=== PATIENT | male | born 1950 | race Caucasian/White ===

== ENCOUNTER → 2016-07-02 | Outpatient (CLI) | payer BC ==
[~2016-07-02] MED LIST: LEVO200T PO
[2016-07-02 12:02] LABS: ALT/SGPT 46 U/L (12-78); BLOOD UREA NITROGEN 17 mg/dl (7-18); BUN/CREATININE RATIO 13.8 (10-20); CALCIUM 9.5 mg/dl (8.5-10.1); CARBON DIOXIDE 27 mmol/L (21-32); CHLORIDE 106 mmol/L (98-107); GLUCOSE 92 mg/dl (70-99); POTASSIUM 4.9 mmol/L (3.5-5.1); SODIUM 139 mmol/L (136-145)
[2016-07-02 12:05] LABS: BASO % 1.2 %; BASO ABS # 0.06 K/uL (0-0.2); COMPLETE YES; EOS % 3.7 %; HEMATOCRIT 45.4 % (42-52); IG% 0.2 %; LYMPH % 37.5 %; LYMPH ABS # 1.94 K/uL (1.2-3.4); MEAN CORPUSCULAR HEMOGLOBIN 31.9 pg (25-34); MEAN CORPUSCULAR HGB CONC 33.9 g/dl (32-36); MEAN PLATELET VOLUME 10.1 fL (7.4-10.4); MONO % 9.1 %; NEUT % 48.3 %; PLATELET COUNT 230 K/uL (130-400); RED BLOOD COUNT 4.83 M/uL (4.7-6.1); WHITE BLOOD COUNT 5.17 K/uL (4.8-10.8)
[2016-07-02 12:13] LABS: ALB/GLOB RATIO 1.1 (0.9-2); ALKALINE PHOSPHATASE 41 U/L (45-117); AST/SGOT 26 U/L (15-37); CHOLESTEROL 190 mg/dl (0-200); CHOLESTEROL/HDL RATIO 3.3; HDL CHOLESTEROL 58 mg/dl; LDL CHOLESTEROL CALCULATED 119 mg/dl; TRIGLYCERIDES 64 mg/dl (0-150); VERY LOW DENSITY LIPOPROT CALC 13 mg/dl
== END | disposition home or self-care (01) ==
LOC: C.LAB 10:14
PROVIDERS: ATTEND Internal Medicine
DX: Z00.00 Encounter for general adult medical examination without abnormal findings (principal); Z87.09 Personal history of other diseases of the respiratory system; Z11.59 Encounter for screening for other viral diseases

== ENCOUNTER → 2016-10-04 | Outpatient (CLI) | payer BC | END | disposition home or self-care (01) | LOC: C.LAB 09:55 | PROVIDERS: ATTEND Urology | DX: C61 Malignant neoplasm of prostate (principal) ==

== ENCOUNTER → 2017-05-08 | Outpatient (CLI) | payer BC ==
--- NOTE | 2017-05-08 11:20 | DIAGNOSTIC IMAGING REPORT ---
KUB CLINICAL HISTORY: NEPHROLITHIASIS COMPARISON STUDY: 04/04/2016 FINDINGS: There are multiple tiny bilateral renal calculi measuring up to 2 mm in diameter. Calcifications are also visualized projected over the superior aspect of the left renal shadow. It is possible that these are adrenal. Renal cortical calcifications could potentially appear similar. Degenerative changes are present within the spine. There is no pathologic bowel dilatation. There are multiple pelvic basin calcifications, likely representing phleboliths. IMPRESSION: Bilateral nephrolithiasis, similar to the preceding March 2016 study Electronically signed by: Ed Judge M.D. 05/08/2017 11:19 AM Dictated Date/Time: 05/08/2017 11:17 AM
== END | disposition home or self-care (01) ==
LOC: C.RAD 09:23
PROVIDERS: ATTEND Urology
DX: C61 Malignant neoplasm of prostate (principal); N20.0 Calculus of kidney

== ENCOUNTER 2017-06-27 11:00 | Emergency (ER) | payer OTHER ==
[~2017-06-27] VITALS: Ht 182.9 cm; Wt 122.8 kg
[2017-06-27 11:02] VITALS: TEMP 36.7; Ht 182.9 cm; Wt 122.8 kg
--- NOTE | 2017-06-27 11:30 | EMERGENCY ROOM VISIT NOTE ---
History Report prepared by Ilan: Svetlana Julio Under the Supervision of: Dr. Yusef Parker D.O. First contact with patient: 11:18 Chief Complaint: KIDNEY STONE Stated Complaint: KIDNEY STONE PAIN IN LEFT KIDNEY History of Present Illness The patient is a 67 year old male who presents to the Emergency Room with complaints of constant left flank pain beginning this morning. The patient has a history of kidney stones. He states his pain feels similar to when he had had kidney stones. He reports nausea and sweats this morning but denies any vomiting or testicular pain. Presently, the patient is feeling better and denies any nausea. The patient follows up with Dr. Coombs-Urology who performs yearly X-rays on his kidney stones. The patient had an X-ray on his kidneys in April which showed two 2 mm stones in his left kidney. The patient called Dr. Coombs's office this morning and was told to come to the ED. The patient has a history of prostate cancer. Source of History: patient Onset: this morning Position: other (left flank) Timing: constant Associated Symptoms: + diaphoresis, + nausea, No vomiting Review of Systems See HPI for pertinent positives & negatives. A total of 10 systems reviewed and were otherwise negative. Family History Patient reports no known family medical history. Social History Smoking Status: Never Smoker Marital Status: Housing Status: lives with significant other Current/Historical Medications Scheduled Ascorbic Acid (Vitamin C), 1,000 MG PO DAILY Levothyroxine Sodium (Synthroid), 200 MCG PO QAM Magnesium Oxide (Mag-Ox), 400 MG PO DAILY Scheduled PRN Hydrocodone/Acetaminophen 5MG/325MG (Eitzen 5MG/325MG), 1 TABLET PO Q4 PRN for Pain Allergies Coded Allergies: Codeine (Unverified Adverse Reaction, Mild, GI SYMPTOMS, 06/27/17) Nausea/Vomiting Physical Exam Vital Signs Date Time Temp Pulse Resp B/P (MAP) Pulse Ox O2 Delivery O2 Flow Rate FiO2 06/27/17 13:33 69 18 131/69 97 06/27/17 12:55 75 06/27/17 12:43 75 16 129/74 96 Room Air 06/27/17 11:02 36.7 91 18 143/96 96 Room Air Physical Exam GENERAL: Patient is awake, alert, and in no acute distress. Patient is resting comfortably and showing no signs of anxiety EYES: The conjunctivae are clear. The pupils are round and reactive. EARS, NOSE, MOUTH AND THROAT: The nose is without any evidence of any deformity. Mucous membranes are moist tongue is midline NECK: The neck is nontender and supple. RESPIRATORY: Normal respiratory effort is noted there is no evidence of wheezing rhonchi or rales CARDIOVASCULAR: Regular rate and rhythm noted there no murmurs rubs or gallops normal S1 normal S2 GASTROINTESTINAL: The abdomen is soft. Bowel sounds are present in all quadrants. Abdomen is nontender BACK: No midline tenderness or or step-off noted range of motion in flexion extension as well as rotation no signs of muscle spasm noted MUSCULOSKELETAL/EXTREMITIES: There is no evidence of gross deformity full range of motion is noted in the hips and shoulders SKIN: There is no obvious evidence of any rash. There are no petechiae, pallor or cyanosis noted. NEUROLOGIC: Patient is awake alert and oriented x3 Medical Decision & Procedures ER Provider Diagnostic Interpretation: Radiology results as stated below per my review and radiologist interpretation: KUB FINDINGS: Mottled lucencies throughout the abdomen likely stool and bowel gas. No gross pneumoperitoneum. No bowel obstruction. Bowel gas and stool limit evaluation for renal calculi. Allowing for this, bilateral renal calculi are noted. However, some of the previously noted calculi are no longer visualized, which may be related to obscuration by stool. Numerous pelvic phleboliths. Degenerative changes of the spine. Lung bases clear. IMPRESSION: 1. Bilateral nephrolithiasis. Evaluation limited by bowel gas and stool. Electronically signed by: Mikael Costa M.D. (RENAL)RETROPERITON COMP FINDINGS: Right kidney: Normal echogenicity of renal parenchyma. Right kidney measures 11.0 cm. No hydronephrosis. Hyperechogenic foci measuring up to 8 mm with posterior shadowing and twinkling artifact, consistent with renal calculi. Normal perfusion. Left kidney: Normal echogenicity of renal parenchyma. Left kidney measures 12.5 cm. No hydronephrosis. Hyperechogenic foci not as well detected secondary to poor sonographic window. Renal calculi suspected. Normal perfusion. Bladder: No bladder wall thickening. Bilateral ureteral jets not visualized. Other: None. IMPRESSION: 1. Nonobstructive right nephrolithiasis. Limited sonographic window on the left but suspected left renal calculi. 2. No hydronephrosis. Electronically signed by: Mikael Costa M.D. Laboratory Results 06/27/17 11:15 Red Blood Count 4.89, Mean Corpuscular Volume 95.7, Mean Corpuscular Hemoglobin 32.1, Mean Corpuscular Hemoglobin Concent 33.5, Mean Platelet Volume 10.2, Neutrophils (%) (Auto) 84.1, Lymphocytes (%) (Auto) 8.7, Monocytes (%) (Auto) 5.9, Eosinophils (%) (Auto) 0.5, Basophils (%) (Auto) 0.5, Neutrophils # (Auto) 8.98, Lymphocytes # (Auto) 0.93, Monocytes # (Auto) 0.63, Eosinophils # (Auto) 0.05, Basophils # (Auto) 0.05 06/27/17 11:15 Test 06/27/17 11:15 06/27/17 11:32 White Blood Count 10.67 K/uL (4.8-10.8) Red Blood Count 4.89 M/uL (4.7-6.1) Hemoglobin 15.7 g/dL (14.0-18.0) Hematocrit 46.8 % (42-52) Mean Corpuscular Volume 95.7 fL (80-100) Mean Corpuscular Hemoglobin 32.1 pg (25-34) Mean Corpuscular Hemoglobin Concent 33.5 g/dl (32-36) Platelet Count 220 K/uL (130-400) Mean Platelet Volume 10.2 fL (7.4-10.4) Neutrophils (%) (Auto) 84.1 % Lymphocytes (%) (Auto) 8.7 % Monocytes (%) (Auto) 5.9 % Eosinophils (%) (Auto) 0.5 % Basophils (%) (Auto) 0.5 % Neutrophils # (Auto) 8.98 K/uL (1.4-6.5) Lymphocytes # (Auto) 0.93 K/uL (1.2-3.4) Monocytes # (Auto) 0.63 K/uL (0.11-0.59) Eosinophils # (Auto) 0.05 K/uL (0-0.5) Basophils # (Auto) 0.05 K/uL (0-0.2) RDW Standard Deviation 47.2 fL (36.4-46.3) RDW Coefficient of Variation 13.5 % (11.5-14.5) Immature Granulocyte % (Auto) 0.3 % Immature Granulocyte # (Auto) 0.03 K/uL (0.00-0.02) Anion Gap 7.0 mmol/L (3-11) Est Creatinine Clear Calc Drug Dose 75.1 ml/min Estimated GFR () 65.3 Estimated GFR (Non- 56.3 BUN/Creatinine Ratio 15.5 (10-20) Calcium Level 9.8 mg/dl (8.5-10.1) Total Bilirubin 0.7 mg/dl (0.2-1) Direct Bilirubin 0.2 mg/dl (0-0.2) Aspartate Amino Transf (AST/SGOT) 34 U/L (15-37) Alanine Aminotransferase (ALT/SGPT) 56 U/L (12-78) Alkaline Phosphatase 39 U/L (45-117) Total Protein 8.0 gm/dl (6.4-8.2) Albumin 4.3 gm/dl (3.4-5.0) Lipase 192 U/L (73-393) Urine Color YELLOW Urine Appearance CLEAR (CLEAR) Urine pH 7.0 (4.5-7.5) Urine Specific [place] 1.012 (1.000-1.030) Urine Protein NEG (NEG) Urine Glucose (UA) NEG (NEG) Urine Ketones NEG (NEG) Urine Occult Blood 2+ (NEG) Urine Nitrite NEG (NEG) Urine Bilirubin NEG (NEG) Urine Urobilinogen NEG (NEG) Urine Leukocyte Esterase NEG (NEG) Urine WBC (Auto) 1-5 /hpf (0-5) Urine RBC (Auto) >30 /hpf (0-4) Urine Hyaline Casts (Auto) 1-5 /lpf (0-5) Urine Epithelial Cells (Auto) 10-20 /lpf (0-5) Urine Bacteria (Auto) NEG (NEG) Laboratory results per my review. ED Course 1119: The patient was evaluated in room A2. A complete history and physical examination were performed. 1305: I updated the patient on his test results. 1321: Upon reevaluation, the patient is resting comfortably. I discussed the results and treatment plan with him. He verbalized agreement of the treatment plan. The patient was discharged home. Medical Decision Differential diagnosis: Etiologies such as renal colic, appendicitis, diverticulitis, mesenteric ischemia, aortic pathology, infections, inflammatory bowel disease, PUD, biliary pathology, UTI, as well as others were entertained. Nursing notes reviewed. The patient's previous radiographic studies were reviewed. The patient is a 67-year-old male who began having acute flank pain early this morning. Given the patient's history and physical exam as well as his findings on laboratory studies I feel he likely passed a kidney stone today. His pain was severe but by the time he came to the emergency Department pain was almost resolved. The patient did not wish to take any medication for pain. The patient' s ultrasound did not show any definite hydronephrosis. I discussed the patient' s laboratory radiographic studies with him. At this time I've recommended he continue drinking plenty clear liquids and continue using Motrin and Tylenol for pain. He was also encouraged to take the stronger pain medication as needed for return pain and follow-up with his primary urologist as soon as possible. He was also encouraged return to the emergency department immediately if symptoms change worsen or the need arises. Medication Reconcilliation Current Medication List: was personally reviewed by me Blood Pressure Screening Patient's blood pressure: Elevated blood pressure Blood pressure disposition: Elevated BP felt to be situational Impression Primary Impression: Renal colic Additional Impression: Hematuria Scribe Attestation The scribe's documentation has been prepared under my direction and personally reviewed by me in its entirety. I confirm that the note above accurately reflects all work, treatment, procedures, and medical decision making performed by me. Departure Information Dispostion Home / Self-Care Prescriptions Hydrocodone/Acetaminophen 5MG/325MG (Eitzen 5MG/325MG) Tab 1 TABLET PO Q4 Y for Pain, #20 TAB Prov: Yusef Parker, DO 06/27/17 Referrals Mikael Castellon M.D. (PCP) Forms HOME CARE DOCUMENTATION FORM, IMPORTANT VISIT INFORMATION Patient Instructions Kidney Stones Expectant Therapy, My [facility] Additional Instructions Continue all medications as prescribed. Drink plenty clear liquids. Continue using Motrin and Tylenol for mild pain. Call your primary care physician as well as her primary urologist schedule follow-up appointment. Problem Qualifiers Additional Impression: Hematuria Hematuria type: unspecified type Qualified Codes: R31.9 - Hematuria, unspecified
[2017-06-27 11:39] LABS: BASO % 0.5 %; BASO ABS # 0.05 K/uL (0-0.2); EOS % 0.5 %; EOS ABS # 0.05 K/uL (0-0.5); HEMATOCRIT 46.8 % (42-52); HEMOGLOBIN 15.7 g/dL (14.0-18.0); IG# 0.03 K/uL (0.00-0.02); LYMPH % 8.7 %; LYMPH ABS # 0.93 K/uL (1.2-3.4); MEAN CELL VOLUME 95.7 fL (80-100); MEAN CORPUSCULAR HEMOGLOBIN 32.1 pg (25-34); MEAN CORPUSCULAR HGB CONC 33.5 g/dl (32-36); MEAN PLATELET VOLUME 10.2 fL (7.4-10.4); MONO % 5.9 %; MONO ABS # 0.63 K/uL (0.11-0.59); NEUT % 84.1 %; NEUT ABS # 8.98 K/uL (1.4-6.5); PLATELET COUNT 220 K/uL (130-400); RED CELL DISTRIBUTION WIDTH CV 13.5 % (11.5-14.5); RED CELL DISTRIBUTION WIDTH SD 47.2 fL (36.4-46.3); WHITE BLOOD COUNT 10.67 K/uL (4.8-10.8)
[2017-06-27 11:57] LABS: ALBUMIN 4.3 gm/dl (3.4-5.0); CALCIUM 9.8 mg/dl (8.5-10.1); CREATININE 1.31 mg/dl (0.60-1.40); POTASSIUM 3.9 mmol/L (3.5-5.1)
--- NOTE | 2017-06-27 12:11 | DIAGNOSTIC IMAGING REPORT ---
KUB CLINICAL HISTORY: 67 years-old Male presenting with ABDOMINAL PAIN/GI. TECHNIQUE: Single supine view of the abdomen was obtained. COMPARISON: 05/08/2017. FINDINGS: Mottled lucencies throughout the abdomen likely stool and bowel gas. No gross pneumoperitoneum. No bowel obstruction. Bowel gas and stool limit evaluation for renal calculi. Allowing for this, bilateral renal calculi are noted. However, some of the previously noted calculi are no longer visualized, which may be related to obscuration by stool. Numerous pelvic phleboliths. Degenerative changes of the spine. Lung bases clear. IMPRESSION: 1. Bilateral nephrolithiasis. Evaluation limited by bowel gas and stool. Electronically signed by: Mikael Costa M.D. 06/27/2017 12:10 PM Dictated Date/Time: 06/27/2017 12:08 PM
--- NOTE | 2017-06-27 12:35 | DIAGNOSTIC IMAGING REPORT ---
(RENAL)RETROPERITON COMP CLINICAL HISTORY: 67 years-old Male presenting with left flank pain. TECHNIQUE: Real-time grayscale and limited color Doppler ultrasound imaging of the kidneys and bladder was performed. COMPARISON: Plain radiograph performed earlier the same day. FINDINGS: Right kidney: Normal echogenicity of renal parenchyma. Right kidney measures 11.0 cm. No hydronephrosis. Hyperechogenic foci measuring up to 8 mm with posterior shadowing and twinkling artifact, consistent with renal calculi. Normal perfusion. Left kidney: Normal echogenicity of renal parenchyma. Left kidney measures 12.5 cm. No hydronephrosis. Hyperechogenic foci not as well detected secondary to poor sonographic window. Renal calculi suspected. Normal perfusion. Bladder: No bladder wall thickening. Bilateral ureteral jets not visualized. Other: None. IMPRESSION: 1. Nonobstructive right nephrolithiasis. Limited sonographic window on the left but suspected left renal calculi. 2. No hydronephrosis. Electronically signed by: Mikael Costa M.D. 06/27/2017 12:34 PM Dictated Date/Time: 06/27/2017 12:32 PM
[2017-06-27] MEDS ORDERED: ASCO10003 PO (12:44)
[2017-06-27] MEDS ORDERED: MAGN400T6 PO (12:44)
[2017-06-27] MEDS ORDERED: HYDR-5688 PO (13:16)
[2017-06-27 13:33] VITALS: BP 131/69; PULSE 69; O2SAT 97
== END 2017-06-27 13:35 | disposition home or self-care (01) ==
LOC: C.EDB 11:02 → C.EDA 13:35
DX: N23 Unspecified renal colic (principal); R31.9 Hematuria, unspecified; Z87.442 Personal history of urinary calculi; Z85.46 Personal history of malignant neoplasm of prostate; Z79.899 Other long term (current) drug therapy

== ENCOUNTER → 2017-06-30 | Outpatient (CLI) | payer OTHER ==
[~2017-06-30] MED LIST changes: +ASCO10003 PO; +HYDR-5688 PO; +MAGN400T6 PO
== END | disposition home or self-care (01) ==
LOC: C.LABBC 09:53
PROVIDERS: ATTEND Internal Medicine
DX: Z13.220 Encounter for screening for lipoid disorders (principal); E03.9 Hypothyroidism, unspecified

== ENCOUNTER → 2017-07-24 | Outpatient (CLI) | payer OTHER ==
--- NOTE | 2017-07-25 05:43 | PAP/PSG TECHNICIAN REPORT ---
[facility] Health Plan Advisor Polysomnogram Report Study name: None Report date: 07/25/2017 Study date: 07/24/2017 Referring Physician: Dr. Komal Castellon Name: VALERIE LUCERO Interpreting Physician: Calderon Chandra M.D. Date of : 1950 Health Plan Advisor: Matilda Mandel RPSGT. Sex: Male Age: 67 StudyType: PSG Weight: 266 lbs Height: 67 years, Height 5' 9.5" Neck Circum:18inches BMI: 38.71 Medications: Sildenafil 105mg, Levothyroxine Sodium 200mg Patient History Study started on room air with ETCO2 monitoring in room #8. 67 yr old male here tonight for a possible split psg. He was diagnosed with FLORA in 2005 and has been using CPAP since then every night. He needs a new machine and due to an insurance change in May 2017 to Medicare he needs a new sleep study. He stated that he sometimes gets leg cramps at night and needs to get up and walk. His ESS=2/24. His neck circ=18inches. Parameters Monitored NPSG: E1-M2, E2-M1, Fp1-M2, Fp2-M1, F3-M2, F4-M2, F4-M1, C3-M2, C4-M2, C4-M1, O1-M2, O2-M2, O2-M1, T3-M2, T4-M1, P3-M2, P4-M1, CHIN1, CHIN2, HR, EKG, Legs, PFLOW, SNOR, FLOW, CFLOW, Tidal Volume, THOR, ABDO, SpO2, PLTH, CPRESS, ETCO2 Wave, ETCO2, pH Sleep Architecture Sleep Stages Time at Lights Off 10:45:06 PM STAGES Time (min.) TST (%) Time at Lights On 5:27:36 AM Wake 50.5 -- Total Recording Time (TRT) 402.50 min. N1 42.5 12 Total Sleep Period (TSP) 393.5 min. N2 259.0 74 Total Sleep Time (TST) 352.0min. N3 0.0 0 Awake Time 50.5 min. REM 50.5 14 Wake after Sleep Onset 41.5 min. Sleep Efficiency (SE) 87 % Sleep Onset Latency (ILANA) 9.0 min. Number of Stage 1 Shifts None Awakenings 31 Stage Changes 150 Number of REM periods 8 REM 50.5 14 REM Latency 57.0 min. NREM 301.5 86 Body Position Analysis Supine Right Left Side Prone Vertical Total Sleep Time (min.) 54.8 173.6 135.5 309.11 0.0 0.0 Total Sleep Time (%) 12% 49% 38% 88 0% N/A% Total Sleep Time REM (min.) 0.0 18.5 32.0 None 0.0 0.0 Total Sleep Time NREM (min.) 42.9 155.1 103.5 None 0.0 0.0 Intermittent Wake (min.) 12.0 29.7 8.8 None 0.0 0.0 Total Sleep Period (%) 13% None None None None None Arousals Myoclonus (PLM) * Events Count Index Events Count Index Spontaneous 26 4 Events Awake (PLMW) 43 51.1 Respiratory 24 4.9 Events Asleep w/ Arousal (PLMA) 16 2.7 PLM 15 3 Events Asleep w/o Arousal (PLMS) 75 12.8 Snoring 26 4 Total Asleep 91 15.5 Total 89 15 Total 134 20 Respiratory Analysis * CA OA MA CH H RERA Total Count 0 12 0 0 42 3 54 Index 0.0 2.0 0.0 0 7.2 1 9.7 Mean Duration 0.0 17.2 0.0 0.00 23.4 22.8 22.1 Longest Duration 0.0 24.6 0.0 0.00 0.0 28.3 56.0 Respiratory Event Summary Total Supine ~Supine Right Left Prone REM NREM Apneas Count 12 11 1 1 0 N/A 1 11 Index 2.0 15 0 0.3 0.0 N/A 1 2 Hypopneas (4% Desat) Count 42 13 29 15 14 N/A 15 27 Index 7.2 18.2 6 5.2 6.2 N/A 17.8 5.4 Apneas & All Hypopneas Count 54 24 30 16 14 N/A 16 38 Index 9.2 34 6 6 6 N/A 19.0 7.6 Respiratory Events (Financial Services Intern+All Hyp+RERA) Count 54 25 32 16 16 N/A 16 38 Index 9.7 35 6 5.5 7.1 N/A 19.0 8.2 Respiratory Related Arousal Count 24 25 14 7 7 N/A 7 22 Index 4.9 21 3 2 3 N/A 8 4 Snoring Analysis Supine Right Left Prone REM NREM Total Snore duration 56.4 min Snores count 129 1,424 1,081 N/A 443 2,191 2,634 Snore mean duration 1.3 Sec Snores index 180 492 479 N/A 526.3 436.0 449.0 TST with snoring (%) 16.0% SpO2 Analysis Total REM NREM Awake <50% 0.0 min. 0.0 min. 0.0 min. 0.0 min. 51 - 60% 0.1 min. 0.0 min. 0.0 min. 0.1 min. 61 - 70% 0.0 min. 0.0 min. 0.0 min. 0.0 min. 71 - 80% 0.0 min. 0.0 min. 0.0 min. 0.0 min. 81 - 90% 83.0 min. 17.0 min. 59.6 min. 6.4 min. 91 - 100% 312.1 min. 33.3 min. 239.9 min. 38.8 min. Average 92 91 92 92 Minimum SpO2 58 88 87 58 Desaturation Event Index 10.4 19.0 8.6 17.8 # Desat. Events below 89% 11 3 7 1 Time(%) with Saturation below 89% 2.3 0.4 1.7 0.3 Time(min.) with Saturation below 89% 9.0 1.4 6.6 1.0 Heart Rate Analysis End Tidal CO2 Analysis Min (bpm) Max (bpm) Average (bpm) TSP (mins) % of TSP Awake 60 127 73 Above 55 mmHg 0.0 0.0 NREM 40 89 68 50-55 mmHg 0.0 0.0 REM 57 79 66 45-50 mmHg 2.1 0.6 Overall 40 89 67 40-45 mmHg 289.1 82.1 35-40 mmHg 58.7 16.7 30-35 mmHg 1.9 0.5 Average ETCO2 0.1 Supplemental O2 Values Minimum O2 level: None Value Start Time End Time Health Plan Advisor Comments Mr. Lucero slept in the right, left and supine positions. Cardiac arrhythmia and PLM's noted, please see print out. No bruxism noted. Snoring was noted and scored as a 4 on a scale of 1 through 5. (0=no snoring, 5=snoring loud enough to be heard through a closed door or down the lutz way). He awoke to use the restroom 1 time during the night. He stated that he slept worse than when at home and that he was very restless. He did not qualify for a split night study. The final report will be interpreted and signed by a sleep physician. The completed physician report will then be placed in the patient medical record. Therapy (cm H2O) 0 TIB (min.) 402.5 TST (min.) 352.0 Sleep Onset (min.) 9.0 REM Onset From Sleep (min.) 57.0 Sleep Efficiency % 87 Wakefulness (%) 13 Wakefulness (min.) 50.5 NREM 1 (%) 12 NREM 1 (min.) 42.5 NREM 2 (%) 74 NREM 2 (min.) 259.0 NREM 3 (%) 0 NREM 3 (min.) 0.0 REM (%) 14 REM (min.) 50.5 # Arousals 89 Arousal Index 15 # Snore 2,634 Snore Index 449.0 AHI 9.2 AHI Supine 34 AHI Non-Supine 6 NREM AHI 7.6 REM AHI 19.0 RDI 9.7 # Obstructive Apnea 12 # Central Apnea 0 # Mixed Apnea 0 # Hypopneas 42 RERAs 3 Total Respiratory Events 59 Time Below SpO2 89% (min.) 8.0 Mean NREM SpO2 (%) 92 Mean REM SpO2 (%) 91 Mean Sleep SpO2 (%) 92 Min NREM SpO2 (%) 87 Min REM SpO2 (%) 88 Position Supine (min.) 54.8 Position Non-supine (min.) 309.1 LM Index Sleep 15.5 LM Index NREM 13.5 LM Index REM 27.3 Mean Heart Rate (bpm) 67 Min Heart Rate (bpm) 40
--- NOTE | 2017-08-03 16:53 | POLYSOMNOGRAPH REPORT ---
CLINICAL DATA: A 67-year-old male with BMI of 38.[address] Mikael Castellon for possible split night study. He was diagnosed with sleep apnea in 2005 and had been on CPAP since then; he needs a new machine and due to insurance change, he needs an updated sleep study. SLEEP ARCHITECTURE: Total sleep period was 393.5 minutes. Total sleep time was 352 minutes divided between 301.5 minutes of non-REM sleep and 50.5 minutes of REM sleep. Sleep onset latency was 9 minutes. REM latency was 57 minutes. Sleep efficiency was 87%. Wake after sleep onset was 41.5 minutes. Sleep consisted of stage N1 12%, stage N2 74%, and REM 14%. AROUSAL DATA: 89 arousals recorded for an index of 15 per hour. 26 were spontaneous. 26 were due to snoring. 24 were due to respiratory events. PLM DATA: 91 limb movements during sleep were noted for an index of 15.5 per hour with arousal index of 2.7 per hour. RESPIRATORY DATA: Mild sleep apnea was documented. The AHI was 9.2. The RDI was 9.7. There were 12 obstructive apneic episodes. The longest apneic episode was 24.6 seconds. There were 42 hypopneic episodes, with a mean duration of 23.4 seconds. There were 3 RERAs. The longest RERA was 28.3 seconds. OXIMETRY DATA: Very mild nocturnal hypoxemia was seen. Oxygen marlen was 87%. Mean saturation was 92%. Time below 89% was 9 minutes. EKG: Heart rates ranged from 40-89 beats per minute. Occasional PACs were noted. ELECTRICAL ACCESSORIES ASSEMBLER'S COMMENTS: The patient slept in the right, left, and supine position. Snoring was severe, rated 4 on a scale of 1-5. The patient did not reach split night criteria early enough in the sleep study to initiate CPAP. It took well into the night to document significant sleep apnea to the point where the diagnosis could be made. IMPRESSION: Mild sleep apnea/hypopnea with an AHI of 9.2 and an RDI of 9.7. RECOMMENDATIONS: The patient should be continued on CPAP. If a change is needed in pressure, a repeat sleep study with CPAP or use of auto CPAP could be considered. Clinical correlation is needed. WENCESLAO
== END | disposition home or self-care (01) ==
LOC: C.NEUR 21:00
PROVIDERS: ATTEND Internal Medicine
DX: G47.33 Obstructive sleep apnea (adult) (pediatric) (principal)

== ENCOUNTER 2022-06-07 00:37 | Observation (INO) ==
[2022-06-07] MEDS ORDERED: APIXABAN 5 MG TABLET PO STA (00:55)
[2022-06-07 01:24] LABS: INR 1.2 (0.9-1.1); Partial Thromboplastin Ratio 0.9; Partial Thromboplastin Time 24.4 Seconds (21.0-31.0); Prothrombin Time 12.2 Seconds (9.0-12.0)
--- NOTE | 2022-06-07 01:34 | Emergency Department Note ---
Impression & Plan Acute saddle pulmonary embolism, Left leg DVT ED Provider Note CHIEF COMPLAINT: Left lower extremity pain, ultrasound positive for DVT HISTORY OF PRESENT ILLNESS: This 71-year-old male patient presents to the emergency department with complaints of left lower extremity swelling. The patient presented to the emergency department earlier tonight and had laboratory work and an ultrasound performed by nursing protocols. The patient left prior to being evaluated due to long wait times. Review of the patient's records, DVT of the left lower extremity is noted. He was contacted and advised to return to the ER. He states last week he had a prolonged trip to [place] including a 3-hour drive, flight delays, a 3-hour flight and then drive to the hot. He believes this is when the leg cramping began however he noticed tonight more significant swelling. About a month ago the patient had influenza A for which she was treated with Tamiflu. He states he has had a persistent cough and tachycardia since that time. States he wears an apple watch and his heart rate is not infrequently over 100 with any exertion. He has tested negative for COVID. REVIEW OF SYSTEMS: A review of systems was performed with positives and pertinent negatives listed in the history of present illness. 10 systems were reviewed and are otherwise negative. ALLERGIES: see below MEDICATIONS: see below PMH: see below SOCIAL HISTORY: see below DDx: DVT, musculoskeletal, infection, joint effusion, trauma, lymphedema, idiopathic, CHF, as well as other pathologies. PHYSICAL EXAM: Vital signs reviewed. General: Well-appearing 71-year-old male, in no significant distress. HEENT: No scleral icterus, PERRLA, neck supple. Atraumatic. Cardiovascular: Slightly tachycardic with any exertion, normal rate at rest Pulmonary: Clear to auscultation bilaterally, normal work of breathing. Persistent dry cough. Abdomen: Soft, obese nontender, nondistended, positive bowel sounds. Musculoskeletal: Atraumatic, + left lower extremity peripheral edema. Neurologic: Patient awake alert and oriented x 3, speech is clear Skin: Warm, dry, no rash EMERGENCY DEPARTMENT COURSE/MDM: This patient was evaluated and appeared to be in no significant distress. IV access was obtained and laboratory work was draw n. External medical records were reviewed. PT/INR was ordered. After discussion with the patient regarding his persistent cough and tachycardia, CT imaging of the chest was performed due to the proximal level of the DVT. CT imaging is positive for saddle pulmonary embolus. The 5 mg Eliquis had been ordered but was not administered. The patient was started on IV heparin bolus and drip. He was informed of the findings and plan for admission. We did have long conversation at the bedside, he has expressed understanding. Patient's case was discussed with the hospitalist service who will evaluate the patient for admission and further management. MONITORING: An order for cardiac monitoring was placed and the patient is noted to be in a normal sinus rhythm at 100 beats per minute. RADIOLOGY: PreliminaryFindingsOnly See Final Report For Complete Findings CTA CHEST: There is a large pulmonary embolus with a saddle component. There is occlusion of the right lower lobe and left upper lobe segmental pulmonary arteries. Radiologist: David Rios MD Study ready at 01:53 and initial results transmitted at 01:55 Communications: Clear Time Type Notes 06/07/22 02:09 Call Doctor Regarding Pulmonary Embolism, called Dr. Andrea on 06/07 02:09 (-05:00) EKG: To my interpretation reveals a sinus rhythm with a first-degree AV block at 79 bpm. Left axis deviation, pulmonary disease pattern. QTC is 451. Normal ST segments. No PVC, no PAC. When compared to previous dated December 13, 2021,SC interval has increased DISPOSITION: Admission I have personally spent greater than 40 minutes of critical care time in the direct management of this patient. This includes bedside care, interpretation of diagnostic studies, and testing, discussion with consultants, patient, and family members, and other required patient management activities. This 40 minutes is in excess of all separately billable procedures. Past Med/Surg History Medical History Cancer PROSTATE Colon polyps History of COVID-19 06/10/21, home test and "swab test from [place]", not hospitalized; fever, "bad flu symptoms">resolved. Hx of fall 10/2021, injury to Rt. shoulder, currently having PT and had an injection. Hx of glaucoma "had surgery for it", f/u Dr. Sales Hypothyroidism Kidney stones Knee fracture, left no surgery -- knee brace and physical therapy Obesity FLORA (obstructive sleep apnea) CPAP Prediabetes diet controlled Seasonal allergies Surgical History H/O Achilles tendon repair left ankle History of appendectomy History of colonoscopy History of cystoscopy stent and stone basketing History of lithotripsy right kidney History of prostatectomy History of tonsillectomy Family History Mother Diabetes Stroke Father Myocardial infarction Brother Myocardial infarction Other No family history of adverse response to anesthesia No family history of bleeding disorder No pertinent family history Denies family history of Ovarian cancer Prostate cancer Breast cancer Lung cancer Colorectal cancer Hypertension Social History Smoking Status: Never smoker Second Hand Exposure: No; Hx Alcohol Use: Yes Alcohol type: beer Alcohol Intake Frequency: 2-3 x/Week Hx Substance Use: No Preferred Language: Macedonian Communication Ability: Effective Visual Impairment: Limited Hearing Ability: Use of Hearing Aid Job Hand Required: No Beliefs That Will Affect Care: None marital status: Current Living Situation: Spouse Current Living Situation Comment: current occupational status: employed How many Children do You have: 2 Feels Safe at Home: Yes Childhood Exposure to Second-Hand Smoke: No caffeine: Yes Dental Care, Regularly: Yes Physical Activity Frequency: 1-2 Times per Week Seatbelt Use: always Sunscreen Use: Yes Assistive Devices: CPAP Allergies Allergies Allergy/AdvReac Type Severity Reaction Status Date / Time codeine AdvReac Mild Nausea Verified 06/10/22 14:34 Home Meds Home Medications Medication Instructions Recorded Confirmed sildenafil 100 mg tablet 100 mg PO QPM PRN Sexual Activity 12/15/21 06/10/22 Previous Rx's Medication Instructions Recorded levothyroxine 200 mcg tablet 200 mcg PO QAM #90 tabs 10/19/21 chlorthalidone 25 mg tablet 25 mg PO DAILY #90 tabs 03/14/22 apixaban 5 mg (74 tabs) tablets in 5 mg PO BID #74 ea 06/08/22 a dose pack ([employer]) Results & Data (ED) Vital Signs Vital Signs - 24 hr 06/07/22 00:45 06/07/22 01:20 06/07/22 02:00 Temperature 36.5 C Temperature Source Temporal Artery Scan Pulse Rate 100 H Pulse Rate [Finger] 89 81 Pulse Rhythm [Finger] Regular Regular Pulse Strength [Finger] Normal Normal Respiratory Rate 16 18 18 Respiratory Effort / Characteristics Non-Labored Spontaneous Non-Labored Non-Labored Respiratory Depth Normal Normal Normal Respiratory Pattern Regular Regular Blood Pressure 118/73 Blood Pressure [Right Arm] 121/79 107/73 Blood Pressure Mean 88 Blood Pressure Mean [Right Arm] 93 84 Blood Pressure Position Sitting Blood Pressure Position [Right Arm] Lying Lying Pulse Oximetry 94 92 92 Oxygen Delivery Method Room Air Room Air Room Air Sepsis Recent Fever Within 48 Hours No Sepsis New/Unexplained Change in Mental Status N/A Sepsis Action Taken by Nursing No Action Required Home Medications Current Medication List: was personally reviewed by me Laboratory Data Attestation: I reviewed the patient's lab results. 06/08/22 05:19 06/08/22 05:19 Lab Results 06/06/22 06/07/22 06/07/22 Range/Units 18:27 00:58 02:50 PT 12.2 H (9.0-12.0) Seconds INR 1.2 H (0.9-1.1) APTT 24.4 (21.0-31.0) Seconds PTT Ratio 0.9 Troponin I High Sens 8.4 (0-20) pg/ml B-Natriuretic Peptide 28 (0-100) pg/ml Administered Medications Discontinued Medications Acetaminophen (Acetaminophen 325 Mg Tab) 650 mg PO Q4H PRN PRN Reason: Headache or Pain Stop: 07/07/22 11:03 Last Admin: 06/07/22 11:35 Dose: 650 mg Documented By: ASHOK Apixaban (Apixaban 5 Mg Tablet) 5 mg PO NOW [facility] Stop: 06/07/22 00:56 Last Admin: 06/07/22 02:20 Dose: Not Given Documented By: SHADI Apixaban (Apixaban 5 Mg Tablet) 10 mg PO BID [facility] Stop: 06/14/22 09:01 Last Admin: 06/08/22 09:36 Dose: 10 mg Documented By: Admin: 06/07/22 21:09 Dose: 10 mg Documented By: LEANNE Chlorthalidone (Chlorthalidone 25 Mg Tab) 25 mg PO QAM [facility] Stop: 07/08/22 08:59 Last Admin: 06/08/22 09:36 Dose: 25 mg Documented By: JESUS Heparin Sodium (Porcine) (Heparin Sod (Porcine) 1000 Unit/Ml) 1 units IV NOW ONE Stop: 06/07/22 02:35 Last Admin: 06/07/22 03:01 Dose: 7,000 units Documented By: MATHIEU Co-signed By: SHADI Heparin Sodium/Dextrose (Heparin Iv Adult Wt-Based Standard With Bolus Protocol) 1 each IV NOW STA; Protocol Stop: 06/07/22 02:19 Last Admin: 06/07/22 03:11 Dose: Not Given Documented By: MATHIEU Heparin Sodium/Dextrose (Heparin Sodium/Dextrose) 25,000 units in 500 mls @ 33 mls/hr IV .[id number] MICHELLE; Protocol Stop: 06/07/22 20:59 Last Titration: 06/07/22 21:09 Dose: 0 units/hr, 0 mls/hr Documented By: LEANNE Co-signed By: ASHOK Admin: 06/07/22 18:53 Dose: 1,650 units/hr, 33 mls/hr Documented By: ASHOK Co-signed By: LEANNE Titration: 06/07/22 18:12 Dose: 1,650 units/hr, 33 mls/hr Documented By: ASHOK Co-signed By: LEANNE Titration: 06/07/22 10:05 Dose: 1,650 units/hr, 33 mls/hr Documented By: ASHOK Co-signed By: PONCE Titration: 06/07/22 06:55 Dose: 1,650 units/hr, 33 mls/hr Documented By: LAURA Co-signed By: ASHOK Admin: 06/07/22 03:02 Dose: 1,650 units/hr, 33 mls/hr Documented By: MATHIEU Co-signed By: SHADI Sodium Chloride (Nss 1000ml) 1,000 mls @ 125 mls/hr IV .Q8H [facility] Stop: 07/07/22 02:29 Last Admin: 06/07/22 10:37 Dose: Not Given Documented By: Infusion: 06/07/22 10:36 Dose: 0 mls/hr Documented By: Infusion: 06/07/22 10:05 Dose: 15 mls/hr Documented By: Admin: 06/07/22 03:10 Dose: 125 mls/hr Documented By: MATHIEU Ioversol (Optiray 320 500ml) 125 ml IV ONCE ONE Stop: 06/07/22 01:48 Last Admin: 06/07/22 01:47 Dose: 118 ml Documented By: TORI Levothyroxine Sodium (Levothyroxine Sodium 200 Mcg Tablet) 200 mcg PO DAILYBB MICHELLE Stop: 07/07/22 06:29 Last Admin: 06/08/22 06:49 Dose: 200 mcg Documented By: Admin: 06/07/22 05:50 Dose: 200 mcg Documented By: LAURA Medina (Icu Protocol For Hyperglycemia) 1 each N/A Q6 MICHELLE Stop: 06/09/22 05:59 Last Admin: 06/07/22 10:36 Dose: 1 each Documented By: Admin: 06/07/22 05:33 Dose: 1 each Documented By: LAURA Paulcellmanny (Heparin Drip Stop Order) 1 each N/A TODAY@2058 ONE Stop: 06/07/22 21:00 Last Admin: 06/07/22 21:09 Dose: 1 each Documented By: LEANNE Potassium Chloride (Potassium Chloride Crtab 20 Meq Tabcr) 40 meq PO NOW ONE Stop: 06/07/22 09:16 Last Admin: 06/07/22 10:36 Dose: 40 meq Documented By: ASHOK Imaging Data Radiologist's Impression: Chest CTA 06/07/22 01:06 CT angio chest PE protocol CT DOSE: 773.02 mGy.cm HISTORY: 71 years-old Male with PE. Acute shortness of breath TECHNIQUE: Multiple CTA images of the chest were obtained after the intravenous administration of 118 ml Optiray. Coronal and sagittal MIPS were obtained from the axial data set and were submitted for review. All measurements were obtained according to NASCET criteria. A dose lowering technique was utilized adhering to the principles of ALARA. COMPARISON: CT abdomen pelvis 12/10/2021 FINDINGS: CTA: The heart is upper limits of normal in size. No pericardial effusion. Mild coronary artery calcifications. Fusiform dilation of the ascending thoracic aorta, 4.8 x 4.8 cm without dissection. Mild to moderate atherosclerosis of the thoracic aorta. Mild straightening of the intraventricular septum. Sagittal pulmonary embolus with extension into the lobar, segmental and subsegmental branches of the upper and right lower lobes. Additional segmental and subsegmental pulmonary emboli of the right middle, left lower lobes and lingula. CT CHEST: No thyroid nodule or lymphadenopathy identified. No pneumothorax, pleural effusion or overt pulmonary edema. No airspace consolidation to suggest pneumonia or pulmonary infarct. Mild subsegmental left basilar atelectasis. There are two 4 mm subpleural solid nodules present within the left lower lobe which are favored to be benign. Central airways are patent. No acute process of the imaged upper abdomen. Calcified granulomata of the splee n. Hepatic steatosis. Mild gynecomastia. Degenerative changes of the shoulders and spine. No acute fracture identified. IMPRESSION: 1. Extensive pulmonary emboli with large saddle embolus and evidence of right heart strain. 2. No pleural effusion or pulmonary infarct. 3. There are two low suspicion 4 mm solid nodules of the left lower lobe, stable from 12/10/2021. No follow-up recommended in a low risk patient. 4. Fusiform aneurysmal dilation of the ascending thoracic aorta, 4.8 x 4.8 cm. Please refer to below summary of Fleischner criteria recommendations for follow- up of incidental CT nodules (Lewis Shah, Guidelines for management of small pulmonary nodules detected on CT scans: A statement from the Fleischner Society, Radiology 237: [phone].) SOLID NODULES Multiple nodules size: <6 mm * Low risk patients: no routine follow-up * high risk patients: optional CT at 12 months Note: newly detected indeterminate nodule in persons 35 years of age or older. * Low risk patients: minimal or absent history of smoking and/or other known risk factors * high risk patients: history of smoking or of other known risk factors (e.g. first degree relative with lung cancer, or exposure to asbestos, radon, uranium) * if a nodule up to 8 mm is partly solid or is ground glass further follow-up is required after 24 months to exclude possible slow growing adenocarcinoma (JULIETTE) ACT 112: Negative or not required by law. The above report was generated using voice recognition software. It may contain grammatical, syntax or spelling errors. Electronically signed by: Mitchell Lewis M.D. 06/07/2022 7:53 AM Discharge Plan Visit Data Chief Complaint: Referred by Doctor Stated Complaint: BLOOD CLOT IN LEFT LEG ED Provider: Yaneth Andrea Discharge Problem: Acute saddle pulmonary embolism, Left leg DVT Patient Disposition: Admitted As Inpatient Discharge Instructions Interventions: ED Discharge Assessment Last Done: 06/07/22 04:00 : Acute saddle pulmonary embolism Qualifiers: Acute cor pulmonale presence: unspecified Qualified Code(s): I26.92 - Saddle embolus of pulmonary artery without acute cor pulmonale Left leg DVT Qualifiers: Affected thrombotic vein of extremity: femoral Chronicity: acute Qualified Code(s): I82.412 - Acute embolism and thrombosis of left femoral vein
[2022-06-07] MEDS ORDERED: OPTIRAY 320 500ml IV ONE (01:47)
[2022-06-07] MEDS ORDERED: Heparin IV Adult Wt-Based Standard WITH Bolus Protocol IV STA (02:18)
[2022-06-07] MEDS ORDERED: HEPARIN SOD (PORCINE) 1000 UNIT/ML IV ONE (02:34)
[2022-06-07] MEDS: HEPARIN SODIUM/DEXTROSE 25,000 UNITS/500 ML BAG IV SCH ×2 (03:02→18:53)
--- NOTE | 2022-06-07 03:02 | History & Physical Report ---
Date of Service June 07, 2022 Assessment & Plan (1) Acute saddle pulmonary embolism: Plan: 71-year-old male with history of prostate cancer, and FLORA, hypertension, and family history of VTE's, who presented to the emergency room for unilateral leg pain and cramping x5 days. Now stable, and admitted to the ICU for management of large saddle PE found on chest CT, extensive left LE DVT. Acute saddle PE/DVT -No prior clotting episode. Family history of chronic anticoagulation in multiple first-degree relatives. -Troponin negative, EKG negative. Now s/p initiation of heparin drip with bolus. Is stable on room air, no tachycardia or hypotension. Low risk despite saddle PE (no hypotension, right heart strain) * Continue heparin drip * Admit to ICU * TTE ordered * Held chlorthalidone. * Started Xarelto 15 mg twice daily (as patient not candidate for thrombolytic therapy) * Hypercoagulability work-up ordered Hypothyroidism * Held home Synthroid FLORA * Ordered CPAP as needed Code: Full code Dispo: ICU FEN/GI: NPO DVT Prophylaxis: Heparin PT/OT: no Consults: (2) Left leg DVT: (3) Hypothyroidism: (4) FLORA (obstructive sleep apnea): (5) Pre-diabetes: (6) Nocturnal leg cramps: (7) Vitamin D deficiency: (8) Hypertriglyceridemia: History of Present Illness Chief Complaint: Unilateral leg, calf pain, left Primary Care Provider: Duc Smallwood, DO 71-year-old male with past medical history of prostate cancer, and FLORA who presented to the emergency room with a chief complaint of unilateral pain and swelling of the left leg. 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 He reports his symptoms started a week ago on Monday at his desk. Patient flew to [place] from [place] on Monday. When he arrived at his hotel, he noticed his left leg was swollen. After a day of continued symptoms the following day at work, he called his , who told him to elevate his legs and later, when his symptoms continued despite leg elevation and progressed to include leg pain, told him to take an aspirin. Patient reports taking 2 aspirin 325 mg tablets on , then 1 tablet twice daily from Monday through Monday. He presented to the emergency room on Monday, where he received a duplex ultrasound of his legs but left before work-up was completed. Patient was called back to the hospital when the Doppler results showed "nonocclusive thrombus is seen in the femoral vein extending to the popliteal as well as one of 2 posterior tibial veins and peroneal veins." In the ED, CBC, CMP mostly within normal limits. Chest CT was notable for large saddle embolus with occlusion of the right lower lobe, and left upper lobe. No hypotension or evidence of right heart strain on EKG. Patient was started on heparin drip with starting bolus. Overnight critical care TRAINING SPECIALIST was notified for immediate admission to the ICU service for closer supervision. Respiratory panel also returned positive for influenza A and influenza B. Patient denies any past medical history of clots. He does report several first- degree members of his family are on daily anticoagulation therapy, though no one in his family has ever been formally diagnosed with a clotting disorder. Specifically, he reports a history of MO in his brother, and a CVA episode in his mother. 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 ROS + cough, left leg swelling. Otherwise, he denies shortness of breath, dyspnea on exertion, headache, lightheadedness, chest pain, abdominal pain, or LE pain. Allergies Allergy/AdvReac Type Severity Reaction Status Date / Time codeine AdvReac Mild Nausea Verified 06/07/22 01:17 Home Medications Medication Instructions Recorded Confirmed Type psyllium husk 3.4 gram/5.4 gram 1 tbsp PO QAM 07/20/21 06/07/22 History oral powder (Metamucil) levothyroxine 200 mcg tablet 200 mcg PO QAM #90 tabs 10/19/21 06/07/22 Rx sildenafil 100 mg tablet 100 mg PO QPM PRN Sexual Activity 12/15/21 06/07/22 History chlorthalidone 25 mg tablet 25 mg PO DAILY #90 tabs 03/14/22 06/07/22 Rx Past Med/Surg History Medical History Cancer PROSTATE Colon polyps History of COVID-19 06/10/21, home test and "swab test from [place]", not hospitalized; fever, "bad flu symptoms">resolved. Hx of fall 10/2021, injury to Rt. shoulder, currently having PT and had an injection. Hx of glaucoma "had surgery for it", f/u Dr. Sales Hypothyroidism Kidney stones Knee fracture, left no surgery -- knee brace and physical therapy Obesity FLORA (obstructive sleep apnea) CPAP Prediabetes diet controlled Seasonal allergies Surgical History H/O Achilles tendon repair left ankle History of appendectomy History of colonoscopy History of cystoscopy stent and stone basketing History of lithotripsy right kidney History of prostatectomy History of tonsillectomy Family History Mother Diabetes Stroke Father Myocardial infarction Brother Myocardial infarction Other No family history of adverse response to anesthesia No family history of bleeding disorder No pertinent family history Denies family history of Ovarian cancer Prostate cancer Breast cancer Lung cancer Colorectal cancer Hypertension Social History Smoking Status: Never smoker Second Hand Exposure: No; Hx Alcohol Use: Yes Alcohol type: beer Alcohol Intake Frequency: 2-3 x/Week Hx Substance Use: No Preferred Language: Maltese Communication Ability: Effective Visual Impairment: Limited Hearing Ability: Use of Hearing Aid Charge Rn Required: No Beliefs That Will Affect Care: None marital status: Current Living Situation: Spouse Current Living Situation Comment: current occupational status: employed How many Children do You have: 2 Feels Safe at Home: Yes Childhood Exposure to Second-Hand Smoke: No caffeine: Yes Dental Care, Regularly: Yes Physical Activity Frequency: 1-2 Times per Week Seatbelt Use: always Sunscreen Use: Yes Assistive Devices: CPAP Review of Systems Review of Systems: All systems reviewed & are unremarkable except as noted in HPI & below Physical Exam Physical Exam: General: Well-appearing, alert, interactive, and in no acute distress. HEENT: Normocephalic, atraumatic. EOM intact. Good conjugate gaze. Nares patent. Moist mucosal membranes. Neck: Supple. No lymphadenopathy. Normal ROM. CV: Regular rate and rhythm. Normal S1 and S2. No murmurs gallops or rubs. Respiratory: Normal respiratory effort. Lungs clear to auscultation bilaterally. No crackles, rhonchi, or wheezes. Abdomen: Soft, nondistended abdomen. No bruits heard on auscultation. No tenderness to deep palpation. No guarding or rebound. Extremities: Capillary refill <2 sec. 2+ dp equal bilaterally. Bilateral pedal edema, L >R. Neuro: Alert and oriented x3. Skin: Clean, dry, and intact. No rashes, bruises, or erythema. Results & Data Results & Data ([facility]) Vital Signs (Past 12 Hours) Vital Signs Temp Pulse Pulse Resp BP BP Pulse Ox 06/07/22 02:00 81 18 107/73 92 06/07/22 01:20 89 18 121/79 92 06/07/22 00:45 36.5 C 100 H 16 118/73 94 O2 Del Method 06/07/22 02:00 Room Air 06/07/22 01:20 Room Air 06/07/22 00:45 Room Air Critical Care Time 40 minutes Supervising Physician Co-Signing Physician Notes Attending addendum: I have physically seen this patient, have supervised the medical residents activities, and agree with the H&P unless as otherwise noted. Assessment and Plan: Large saddle pulmonary embolism/right lower lobe occlusion/left upper lobe segmental PEs/left lower extremity nonocclusive thrombus from femoral vein to peroneal vein and 1 of 2 posterior tibial veins- No right heart strain noted on CT scan Troponin added to baseline laboratories and is normal Continue heparin drip per standard protocol begun in the ED Admit to the ICU for close monitoring potential acute need for intervention Order hypercoagulable work-up Consult body cleaner team Hypothyroidism- Continue levothyroxine 300 mcg daily Hypertension- Continue chlorthalidone Potassium normal range at 3.7 FLORA- Patient to continue to use his own CPAP as needed Remaining orders and notations as noted Resident Activity Tracking Resident Involvement: Resident Care Provided Care Provided: Adult Hospital Medicine (1) Acute saddle pulmonary embolism Acute cor pulmonale presence: unspecified Qualified Code(s): I26.92 - Saddle embolus of pulmonary artery without acute cor pulmonale (2) Left leg DVT Affected thrombotic vein of extremity: femoral Chronicity: acute Qualified Code(s): I82.412 - Acute embolism and thrombosis of left femoral vein
[2022-06-07] MEDS: SODIUM CHLORIDE 0.9% 1000ML 1,000 ML IV SCH ×2 (03:10→10:37)
[2022-06-07] MEDS: ICU Protocol for HYPERglycemia SCH ×2 (05:33→10:36)
--- NOTE | 2022-06-07 05:40 | Critical Care Consultation ---
Date of Consultation June 07, 2022 Assessment & Plan (1) Acute saddle pulmonary embolism: 71-year-old male with family history of DVT and prostate cancer (status post prostatectomy) presents to the ICU after CTA chest findings of large saddle PE with occlusion of the right lower lobe and left upper lobe segmental pulmonary arteries -Currently patient is asymptomatic, other than cough. Hemodynamically stable without hypoxia. Maintaining oxygen saturation on room air. No tachycardia, no hypotensive. No indication for thrombolytics at this time -Follow-up troponin and echo -Started on heparin drip with bolus. Transition to oral anticoagulant when appropriate -Continuous pulse ox, telemetry and hemodynamic monitoring in the ICU for now. -Hold sildenafil and antihypertensives for now -May need to consider lifelong anticoagulation considering family history and patient's travel with work (2) Left leg DVT: Nonocclusive thrombus found on venous Doppler study extending from the femoral vein to the peroneal and 1 of 2 posterior tibial veins -Continue heparin drip and transition to oral anticoagulant when appropriate (3) Hypothyroidism: Continue home dose Synthroid (4) FLORA (obstructive sleep apnea): CPAP at bedtime Supervising Physician Co-Signing Physician Notes I have personally evaluated and examined this patient. I agree with assessment and plan of Alexa TAM. No mikel chest pain, mild cough. Tolerating room air oxygen saturations greater than 97%. Troponins negative. Patient would like to understand costs of Eliquis versus warfarin with regards to his insurance. He does not have any history of gastrointestinal bleeding. We discussed risks and benefits of Coumadin versus Eliquis and we will hopefully transition off heparin and start oral therapies as soon as he decides what medication he would prefer. I suspect he will likely need lifelong anticoagulation as he has a positive family history and engages in a significant amount of travel: Multistate automobile rides and does not ambulate every 2 hours, for his work. History of Present Illness Attending Physician: Sanchez Menon MD History of Present Illness Patient is a 71-year-old male with past medical history of prostate cancer (status post prostatectomy), hypothyroid, kidney stones, FLORA (CPAP at bedtime) who presented to the emergency department with complaints of left lower extremity swelling which started on Monday. 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 Since his return the swelling has increased in a arrived to the emergency depa rtment yesterday afternoon to have it evaluated. Patient had influenza a in April and underwent 5-day treatment with Tamiflu. Since then he has had a residual cough. He does report a family history of blood clots from his mother and maternal uncle. A lower extremity Doppler was performed that showed a nonocclusive DVT extending from the femoral vein to the peroneal and 1 of 2 posterior tibial veins. He was then taken for CTA chest which showed a saddle PE, with occlusion of the right lower lobe and left upper lobe segmental pulmonary arteries. Patient was started on heparin drip with bolus and decision was made to admit to ICU for further management and monitoring considering the extensive size of the PE and risk of rapid decompensation. Patient arrives to the ICU alert and oriented and hemodynamically stable, and is currently maintaining oxygen saturation on room air without respiratory distress. Patient reports an ongoing nonproductive cough for the past month since he has had influenza. He again reports swelling and pain in his left lower extremity from his thigh to his ankle. He denies any shortness of breath even with activity, chest pain, diaphoresis, nausea or vomiting. He denies recent illness, fever, dizziness or syncope, headaches, palpitations, abdominal pain, diarrhea, changes in gait, changes in urinary stream. Patient remained in ICU for now for further management this time. Allergies Allergy/AdvReac Type Severity Reaction Status Date / Time codeine AdvReac Mild Nausea Verified 06/07/22 01:17 Home Medications Medication Instructions Recorded Confirmed Type psyllium husk 3.4 gram/5.4 gram 1 tbsp PO QAM 07/20/21 06/07/22 History oral powder (Metamucil) levothyroxine 200 mcg tablet 200 mcg PO QAM #90 tabs 10/19/21 06/07/22 Rx sildenafil 100 mg tablet 100 mg PO QPM PRN Sexual Activity 12/15/21 06/07/22 History chlorthalidone 25 mg tablet 25 mg PO DAILY #90 tabs 03/14/22 06/07/22 Rx Patient History Medical History Cancer PROSTATE Colon polyps History of COVID-19 06/10/21, home test and "swab test from [place]", not hospitalized; fever, "bad flu symptoms">resolved. Hx of fall 10/2021, injury to Rt. shoulder, currently having PT and had an injection. Hx of glaucoma "had surgery for it", f/u Dr. Sales Hypothyroidism Kidney stones Knee fracture, left no surgery -- knee brace and physical therapy Obesity FLORA (obstructive sleep apnea) CPAP Prediabetes diet controlled Seasonal allergies Surgical History H/O Achilles tendon repair left ankle History of appendectomy History of colonoscopy History of cystoscopy stent and stone basketing History of lithotripsy right kidney History of prostatectomy History of tonsillectomy Family History Mother Diabetes Stroke Father Myocardial infarction Brother Myocardial infarction Other No family history of adverse response to anesthesia No family history of bleeding disorder No pertinent family history Denies family history of Ovarian cancer Prostate cancer Breast cancer Lung cancer Colorectal cancer Hypertension Social History Smoking Status: Never smoker Second Hand Exposure: No; Do You Dip or Chew Tobacco: No; Hx Alcohol Use: Yes Alcohol type: beer Alcohol Intake Frequency: 2-3 x/Week Hx Substance Use: No Preferred Language: Romansh Communication Ability: Effective Visual Impairment: Limited Hearing Ability: Use of Hearing Aid Hospital Supervisor Required: No Beliefs That Will Affect Care: None marital status: Current Living Situation: Spouse Current Living Situation Comment: current occupational status: employed How many Children do You have: 2 Other Information That Helps Us Care for You: No Feels Safe at Home: Yes Safety Concerns: Feels Safe At This Time Childhood Exposure to Second-Hand Smoke: No caffeine: Yes Dental Care, Regularly: Yes Physical Activity Frequency: 1-2 Times per Week Seatbelt Use: always Sunscreen Use: Yes Assistive Devices: Glasses and Hearing Aid - Bilateral Review of Systems Review of Systems: All systems reviewed & are unremarkable except as noted in HPI & below Physical Exam Constitutional: WD/WN, vitals as above cooperative and comfortable; no acute distress Eyes: PERRL, conjunctivae normal, anicteric sclerae ENMT: external ear and nose normal, oropharynx normal Neck: trachea midline, no thyromegaly Respiratory: normal respiratory effort, lungs clear to auscultation Cardiovascular: RRR, no murmur, no edema Gastrointestinal (Abdomen): normal bowel sounds, soft, nontender, no hepatosplenomegaly Musculoskeletal: no cyanosis or clubbing, extremities motor strength 5/5 Skin: no rashes, warm and dry Neurologic: PERRL, EOMI, accommodation nl, no face palsy, no dysarthria Psychiatric: A+Ox3, euthymic affect Results & Data Results & Data ([facility]) Vital Signs (Past 12 Hours) Vital Signs Temp Pulse Pulse Resp BP BP BP 06/07/22 04:20 126/81 06/07/22 04:20 74 17 06/07/22 04:53 71 06/07/22 04:30 36.9 C 73 18 126/81 06/07/22 04:38 36.9 C 06/07/22 03:00 77 20 109/80 06/07/22 02:00 81 18 107/73 06/07/22 01:20 89 18 121/79 06/07/22 00:45 36.5 C 100 H 16 118/73 Pulse Ox O2 Del Method 06/07/22 04:20 06/07/22 04:20 99 Room Air 06/07/22 04:53 06/07/22 04:30 97 Room Air 06/07/22 04:38 06/07/22 03:00 93 06/07/22 02:00 92 Room Air 06/07/22 01:20 92 Room Air 06/07/22 00:45 94 Room Air Coding Level of Care Code INP/OBS CONSULT LVL 3, 45 MIN Diagnoses Acute saddle pulmonary embolism I26.92 Acute cor pulmonale presence: unspecified Left leg DVT I82.412 Affected thrombotic vein of extremity: femoral Chronicity: acute Hypothyroidism E03.9 FLORA (obstructive sleep apnea) G47.33 Time Spent (min) 50 (1) Acute saddle pulmonary embolism Acute cor pulmonale presence: unspecified Qualified Code(s): I26.92 - Saddle embolus of pulmonary artery without acute cor pulmonale (2) Left leg DVT Affected thrombotic vein of extremity: femoral Chronicity: acute Qualified Code(s): I82.412 - Acute embolism and thrombosis of left femoral vein
[2022-06-07] MEDS: LEVOTHYROXINE SODIUM 200 MCG TABLET PO SCH (05:50)
--- NOTE | 2022-06-07 07:55 | CT Scan Report ---
CT angio chest PE protocol CT DOSE: 773.02 mGy.cm HISTORY: 71 years-old Male with PE. Acute shortness of breath TECHNIQUE: Multiple CTA images of the chest were obtained after the intravenous administration of 118 ml Optiray. Coronal and sagittal MIPS were obtained from the axial data set and were submitted for review. All measurements were obtained according to NASCET criteria. A dose lowering technique was u tilized adhering to the principles of ALARA. COMPARISON: CT abdomen pelvis 12/10/2021 FINDINGS: CTA: The heart is upper limits of normal in size. No pericardial effusion. Mild coronary artery calcificat ions. Fusiform dilation of the ascending thoracic aorta, 4.8 x 4.8 cm without dissection. Mild to mod erate atherosclerosis of the thoracic aorta. Mild straightening of the intraventricular septum. Sagit nicho pulmonary embolus with extension into the lobar, segmental and subsegmental branches of the upper and right lower lobes. Additional segmental and subsegmental pulmonary emboli of the right middle, l eft lower lobes and lingula. CT CHEST: No thyroid nodule or lymphadenopathy identified. No pneumothorax, pleural effusion or overt pulmonary edema. No airspace consolidation to suggest pneumonia or pulmonary infarct. Mild subsegmental left b asilar atelectasis. There are two 4 mm subpleural solid nodules present within the left lower lobe wh ich are favored to be benign. Central airways are patent. No acute process of the imaged upper abdomen. Calcified granulomata of the spleen. Hepatic steatosis. Mild gynecomastia. Degenerative changes of the shoulders and spine. No acute fracture identified. IMPRESSION: 1. Extensive pulmonary emboli with large saddle embolus and evidence of right heart strain. 2. No pleural effusion or pulmonary infarct. 3. There are two low suspicion 4 mm solid nodules of the left lower lobe, stable from 12/10/2021. No f ollow-up recommended in a low risk patient. 4. Fusiform aneurysmal dilation of the ascending thoracic aorta, 4.8 x 4.8 cm. Please refer to below summary of Fleischner criteria recommendations for follow-up of incidental CT n odules (Lewis Shah, Guidelines for management of small pulmonary nodules detected on CT scans: A sta tement from the Fleischner Society, Radiology 237: [phone].) SOLID NODULES Multiple nodules size: <6 mm * Low risk patients: no routine follow-up * high risk patients: optional CT at 12 months Note: newly detected indeterminate nodule in persons 35 years of age or older. * Low risk patients: minimal or absent history of smoking and/or other known risk factors * high risk patients: history of smoking or of other known risk factors (e.g. first degree relative with lung cancer, or exposure to asbestos, radon, uranium) * if a nodule up to 8 mm is partly solid or is ground glass further follow-up is required after 24 m onths to exclude possible slow growing adenocarcinoma (JULIETTE) ACT 112: Negative or not required by law. The above report was generated using voice recognition software. It may contain grammatical, syntax o r spelling errors. Electronically signed by: Mitchell Lewis M.D. 06/07/2022 7:53 AM
[2022-06-07 07:57] LABS: Basophils # (auto) 0.08 K/uL (0-0.2); Basophils % (auto) 0.9 %; Eosinophils # (auto) 0.26 K/uL (0-0.50); Eosinophils % (auto) 2.9 %; Hematocrit (blood only) 40.3 % (40.1-51.0); Hemoglobin 13.8 g/dl (14.0-18.0); Immature Granulocytes # (auto) 0.09 K/uL (0.00-0.02); Lymphocytes # (auto) 2.04 K/uL (1.2-3.4); Lymphocytes % (auto) 22.7 %; Mean Corpuscular Hemoglobin 31.4 pg (25.0-34.0); Mean Corpuscular Hgb Conc 34.2 g/dL (32.0-36.0); Mean Corpuscular Volume 91.8 fL (80.0-100.0); Mean Platelet Volume 9.1 fL (9.4-12.4); Monocytes # (auto) 0.77 K/uL (0.24-0.82); Monocytes % (auto) 8.6 %; Neutrophils # (auto) 5.75 K/uL (1.4-6.5); Neutrophils % (auto) 63.9 %; Platelet Count 229 K/uL (130-400); RDW Standard Deviation 46.7 fL (36.4-46.3); Red Blood Count 4.39 M/uL (4.63-6.08); White Blood Count 8.99 K/ul (4.8-10.8)
[2022-06-07 08:06] LABS: INR 1.2 (0.9-1.1); Prothrombin Time 12.4 Seconds (9.0-12.0)
[2022-06-07 08:21] LABS: BUN Creatinine Ratio 16.1 (10-20); Calcium 9.4 mg/dl (8.5-10.1); Creatinine Clr Calc Pharmacy 80.5 ml/min; Est GFR (African American) 76.7 ml/min; Est GFR (Non-African American) 66.2 ml/min; Potassium 3.3 mmol/L (3.5-5.1)
[2022-06-07 08:25] LABS: Troponin I High Sensitivity 7.3 pg/ml (0-20)
[2022-06-07] MEDS ORDERED: OSELTAMIVIR PHOSPHATE 75 MG CAP PO SCH (09:00)
[2022-06-07] MEDS ORDERED: RIVAROXABAN 15 MG TAB PO SCH (09:00)
[2022-06-07] MEDS ORDERED: POTASSIUM CHLORIDE CRTAB 20 MEQ TABCR PO ONE (09:15)
[2022-06-07 09:50] LABS: Partial Thromboplastin Ratio 2.1
[2022-06-07 10:00] LABS: Partial Thromboplastin Time 57.3 Seconds (21.0-31.0)
[2022-06-07] MEDS ORDERED: ACETAMINOPHEN 325 MG TAB PO PRN (11:04)
--- NOTE | 2022-06-07 11:10 | XCELERA ---
[id number] \\[id number]
--- NOTE | 2022-06-07 12:10 | Medical Student Progress Note ---
Date of Service June 07, 2022 Assessment & Plan (1) Acute saddle pulmonary embolism: Plan: 71 yo male hx prostate cancer sp prostatectomy 2014 and maternal hx of DVTs presented to ER with DVT. He was ordered a Venous doppler study and pt went home only to be recalled back after interpretation. CTA revealed saddle PE as well. Pt was HD stable with a cough. He was started with one dose of heparin IV 7000u and then on heparin IV ggt 1650u/hr. Troponin negative. (1) Acute saddle pulmonary embolism: Pt asymptomatic aside from a cough and hemodynamically stable. PE found on chest CTA. -Started on heparin drip with bolus; -start DOAC tonight; eliquis 10mg BID starting with evening dose after stopping heparin -PESI 80 pts Class 2 Low Risk 1.7-3.5% 30 day mortality -heparin drip; daily CBC, PT/INR; stop heparin tonight -echo TTE -EF: 60 - 65% -normal RV function; pressure 21 mmhg -consider Discharge tomorrow; (2) Left leg DVT: Nonocclusive thrombus found on venous Doppler study extending from the femoral vein to the peroneal and 1 of 2 posterior tibial veins. Left leg larger than right leg but improved. -Continue heparin drip and transition to oral anticoagulant when appropriate -pending protein c, S; factor 5 Leiden (3) Hypothyroidism: -Continue home dose Synthroid 200 mcg daily (4) FLORA (obstructive sleep apnea): -CPAP at bedtime (4) Hypokalemia -KCl 40mEq today -reassess tomorrow; daily BMP (5) Hypertension -restart chlorthalidone 25 mg daily FEN/GI: regular Dispo: med/surge DVT ppx: heparin gtt Full Code Acute cor pulmonale presence: unspecified Qualified Code(s): I26.92 - Saddle embolus of pulmonary artery without acute cor pulmonale Admission and Anticipated Discharge Date Admission Date: June 07, 2022 Supervising Attestation I personally examined the patient and verified all fiedl points of history and exam, discussed case, and agree with decision making with A Colby MS3 feeling OK overall slight cough better than when he first got flu but still persistent. Extensive discussion about DVT, PE, etiology, treatment, etc. All questions answered to the best my ability and his satisfaction. Vitals noted, in general he is awake and alert pleasant no distress. HEENT normocephalic atraumatic mucous membranes moist. Breathing unlabored no accessory muscle use good effort. Skin shows no rashes no pallor or icterus. Neuro without focal deficits. PEquite stable. Start DOAC, hopefully home tomorrow. Extensive discussions, answered all questions the best my ability. Coughsounds like resolving flu. Reassurance, supportive care. Subjective Today pt feels improved with no left leg pain, decreased swelling. no sob, chest pain, palpitations, lightheadedness. Physical Exam Physical Exam: GA: well appearing no acute distress Respiratory: mild b/l inspiratory wheezes; breath sounds present bilaterally Cardiovascular: RRR no MRG, no carotid bruits Musculoskeletal: EXT: left leg diameter > right; no tenderness to palpation; no discoloration; Results & Data ([facility]) Vital Signs (Past 12 Hours) Vital Signs Temp Pulse Pulse Resp BP BP BP 06/07/22 11:00 82 21 06/07/22 11:00 111/88 06/07/22 10:00 66 15 06/07/22 10:00 144/98 H 06/07/22 09:00 66 12 06/07/22 09:00 130/93 06/07/22 08:00 70 19 06/07/22 08:00 139/96 06/07/22 07:01 69 17 06/07/22 07:01 144/106 H 06/07/22 07:00 66 13 06/07/22 06:45 68 18 06/07/22 11:45 63 06/07/22 07:44 63 06/07/22 06:00 63 22 06/07/22 06:00 115/84 06/07/22 05:00 73 17 06/07/22 05:00 127/90 06/07/22 04:20 126/81 06/07/22 04:20 74 17 06/07/22 04:53 71 06/07/22 04:30 36.9 C 73 18 126/81 06/07/22 04:38 36.9 C 06/07/22 03:00 77 20 109/80 06/07/22 02:00 81 18 107/73 06/07/22 01:20 89 18 121/79 06/07/22 00:45 36.5 C 100 H 16 118/73 Pulse Ox O2 Del Method 06/07/22 11:00 97 06/07/22 11:00 06/07/22 10:00 97 06/07/22 10:00 06/07/22 09:00 98 06/07/22 09:00 06/07/22 08:00 98 06/07/22 08:00 06/07/22 07:01 96 06/07/22 07:01 06/07/22 07:00 95 06/07/22 06:45 96 06/07/22 11:45 06/07/22 07:44 06/07/22 06:00 93 06/07/22 06:00 06/07/22 05:00 97 06/07/22 05:00 06/07/22 04:20 06/07/22 04:20 99 Room Air 06/07/22 04:53 06/07/22 04:30 97 Room Air 06/07/22 04:38 06/07/22 03:00 93 06/07/22 02:00 92 Room Air 06/07/22 01:20 92 Room Air 06/07/22 00:45 94 Room Air
--- NOTE | 2022-06-07 18:36 | Billing Data ---
Date of Service June 07, 2022 Coding Level of Care Code 32807 SUB INP/OBS CARE MIN
[2022-06-07] MEDS: APIXABAN 5 MG TABLET PO SCH (21:09)
--- NOTE | 2022-06-07 21:41 | Billing Data ---
Date of Service June 07, 2022 Coding Level of Care Code Critical Care 1st - mins
[2022-06-08 06:12] LABS: Basophils # (auto) 0.08 K/uL (0-0.2); Basophils % (auto) 0.9 %; Eosinophils # (auto) 0.23 K/uL (0-0.50); Eosinophils % (auto) 2.7 %; Hematocrit (blood only) 40.4 % (40.1-51.0); Hemoglobin 13.6 g/dl (14.0-18.0); Immature Granulocytes # (auto) 0.06 K/uL (0.00-0.02); Immature Granulocytes % (auto) 0.7 %; Lymphocytes # (auto) 1.51 K/uL (1.2-3.4); Lymphocytes % (auto) 17.8 %; Mean Corpuscular Hemoglobin 30.8 pg (25.0-34.0); Mean Corpuscular Hgb Conc 33.7 g/dL (32.0-36.0); Mean Corpuscular Volume 91.6 fL (80.0-100.0); Mean Platelet Volume 9.4 fL (9.4-12.4); Monocytes # (auto) 0.67 K/uL (0.24-0.82); Monocytes % (auto) 7.9 %; Neutrophils # (auto) 5.93 K/uL (1.4-6.5); Platelet Count 249 K/uL (130-400); RDW Coefficient of Variation 13.9 % (11.5-14.5); RDW Standard Deviation 47.1 fL (36.4-46.3); Red Blood Count 4.41 M/uL (4.63-6.08); White Blood Count 8.48 K/ul (4.8-10.8)
[2022-06-08 06:31] LABS: Potassium 3.7 mmol/L (3.5-5.1)
[2022-06-08 06:34] LABS: INR 1.2 (0.9-1.1); Partial Thromboplastin Time 26.8 Seconds (21.0-31.0); Prothrombin Time 12.5 Seconds (9.0-12.0)
[2022-06-08 06:37] LABS: BUN Creatinine Ratio 15.3 (10-20); Creatinine Clr Calc Pharmacy 81.2 ml/min; Est GFR (African American) 77.6 ml/min; Est GFR (Non-African American) 66.9 ml/min
[2022-06-08] MEDS: LEVOTHYROXINE SODIUM 200 MCG TABLET PO SCH (06:49)
--- NOTE | 2022-06-08 07:07 | Discharge Summary ---
Date of Service June 08, 2022 Admission HPI Per Admitting Provider 71-year-old male with past medical history of prostate cancer, and FLORA who presented to the emergency room with a chief complaint of unilateral pain and swelling of the left leg. 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 He reports his symptoms started a week ago on Monday at his desk. Patient flew to [place] from [place] on Monday. When he arrived at his hotel, he noticed his left leg was swollen. After a day of continued symptoms the following day at work, he called his , who told him to elevate his legs and later, when his symptoms continued despite leg elevation and progressed to include leg pain, told him to take an aspirin. Patient reports taking 2 aspirin 325 mg tablets on , then 1 tablet twice daily from Monday through Monday. He presented to the emergency room on Monday, where he received a duplex ultrasound of his legs but left before work-up was completed. Patient was called back to the hospital when the Doppler results showed "nonocclusive thrombus is seen in the femoral vein extending to the popliteal as well as one of 2 posterior tibial veins and peroneal veins." In the ED, CBC, CMP mostly within normal limits. Chest CT was notable for large saddle embolus with occlusion of the right lower lobe, and left upper lobe. No hypotension or evidence of right heart strain on EKG. Patient was started on heparin drip with starting bolus. Overnight critical care PIN MAKER was notified for immediate admission to the ICU service for closer supervision. Respiratory panel also returned positive for influenza A and influenza B. Patient denies any past medical history of clots. He does report several first- degree members of his family are on daily anticoagulation therapy, though no one in his family has ever been formally diagnosed with a clotting disorder. Specifically, he reports a history of HI in his brother, and a CVA episode in his mother. 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 ROS + cough, left leg swelling. Otherwise, he denies shortness of breath, dyspnea on exertion, headache, lightheadedness, chest pain, abdominal pain, or LE pain. Admission Exam Per Admitting Provider General: Well-appearing, alert, interactive, and in no acute distress. HEENT: Normocephalic, atraumatic. EOM intact. Good conjugate gaze. Nares patent. Moist mucosal membranes. Neck: Supple. No lymphadenopathy. Normal ROM. CV: Regular rate and rhythm. Normal S1 and S2. No murmurs gallops or rubs. Respiratory: Normal respiratory effort. Lungs clear to auscultation bilaterally. No crackles, rhonchi, or wheezes. Abdomen: Soft, nondistended abdomen. No bruits heard on auscultation. No tenderness to deep palpation. No guarding or rebound. Extremities: Capillary refill <2 sec. 2+ dp equal bilaterally. Bilateral pedal edema, L >R. Neuro: Alert and oriented x3. Skin: Clean, dry, and intact. No rashes, bruises, or erythema. Principal Diagnosis pulmonary embolism Discharge Exam Constitutional: well-appearing, no acute distress HEENT: NCAT, no conjunctival injection CV: regular rhythm, no murmur appreciated, extremities well-perfused, no LE edema Resp: CTABL, no wheezes/rales/rhonchi appreciated, no increased work of breathing GI: soft, nondistended, nontender, BS normoactive MSK: no gross deformities appreciated Skin: warm, dry, no rash appreciated Neuro: alert, oriented, no focal neurologic deficit appreciated Discharge Data Allergies Allergy/AdvReac Type Severity Reaction Status Date / Time codeine AdvReac Mild Nausea Verified 06/07/22 01:17 Consultations 06/07/22 02:20 ED Decision to Admit Stat 06/07/22 04:38 Consult Home Care Companion Routine Ordered Studies 06/07/22 01:06 CT for pulmonary embolism PE [CT angio chest PE protocol] Stat Chest CTA 06/07/22 01:06 CT angio chest PE protocol CT DOSE: 773.02 mGy.cm HISTORY: 71 years-old Male with PE. Acute shortness of breath TECHNIQUE: Multiple CTA images of the chest were obtained after the intravenous administration of 118 ml Optiray. Coronal and sagittal MIPS were obtained from the axial data set and were submitted for review. All measurements were obtained according to NASCET criteria. A dose lowering technique was utilized adhering to the principles of ALARA. COMPARISON: CT abdomen pelvis 12/10/2021 FINDINGS: CTA: The heart is upper limits of normal in size. No pericardial effusion. Mild coronary artery calcifications. Fusiform dilation of the ascending thoracic aorta, 4.8 x 4.8 cm without dissection. Mild to moderate atherosclerosis of the thoracic aorta. Mild straightening of the intraventricular septum. Sagittal pulmonary embolus with extension into the lobar, segmental and subsegmental branches of the upper and right lower lobes. Additional segmental and subsegmental pulmonary emboli of the right middle, left lower lobes and lingula. CT CHEST: No thyroid nodule or lymphadenopathy identified. No pneumothorax, pleural effusion or overt pulmonary edema. No airspace consolidation to suggest pneumonia or pulmonary infarct. Mild subsegmental left basilar atelectasis. There are two 4 mm subpleural solid nodules present within the left lower lobe which are favored to be benign. Central airways are patent. No acute process of the imaged upper abdomen. Calcified granulomata of the spleen. Hepatic steatosis. Mild gynecomastia. Degenerative changes of the shoulders and spine. No acute fracture identified. IMPRESSION: 1. Extensive pulmonary emboli with large saddle embolus and evidence of right heart strain. 2. No pleural effusion or pulmonary infarct. 3. There are two low suspicion 4 mm solid nodules of the left lower lobe, stable from 12/10/2021. No follow-up recommended in a low risk patient. 4. Fusiform aneurysmal dilation of the ascending thoracic aorta, 4.8 x 4.8 cm. Please refer to below summary of Fleischner criteria recommendations for follow- up of incidental CT nodules (Lewis Shah, Guidelines for management of small pulmonary nodules detected on CT scans: A statement from the Fleischner Society, Radiology 237: [phone].) SOLID NODULES Multiple nodules size: <6 mm * Low risk patients: no routine follow-up * high risk patients: optional CT at 12 months Note: newly detected indeterminate nodule in persons 35 years of age or older. * Low risk patients: minimal or absent history of smoking and/or other known risk factors * high risk patients: history of smoking or of other known risk factors (e.g. first degree relative with lung cancer, or exposure to asbestos, radon, uranium) * if a nodule up to 8 mm is partly solid or is ground glass further follow-up is required after 24 months to exclude possible slow growing adenocarcinoma (JULIETTE) ACT 112: Negative or not required by law. The above report was generated using voice recognition software. It may contain grammatical, syntax or spelling errors. Electronically signed by: Mitchell Lewis M.D. 06/07/2022 7:53 AM Hospital Course (1) Acute saddle pulmonary embolism: (2) Left leg DVT: (3) Hypothyroidism: (4) Hypertension: Plan 71 yo male hx prostate cancer sp prostatectomy 2014 and maternal hx of DVTs presented to ER with DVT. He was ordered a Venous doppler study and pt went home only to be recalled back after interpretation. CTA revealed saddle PE as well. Pt was HD stable with a cough. He was started with one dose of heparin IV 7000u and then on heparin IV ggt 1650u/hr. Troponin negative. Acute saddle pulmonary embolism: -Pt asymptomatic aside from a cough and hemodynamically stable. PE found on chest CTA. -Started on heparin drip with bolus and DOAC. -PESI 80 pts Class 2 Low Risk 1.7-3.5% 30 day mortality -echo TTE -EF: 60 - 65% -normal RV function; pressure 21 mmhg -Discharged on Eliquis 10mg BID for 7 days. Then 5mg BID. F/u with PCP in 1-2 weeks to continue therapy. Left leg DVT: -Nonocclusive thrombus found on venous Doppler study extending from the femoral vein to the peroneal and 1 of 2 posterior tibial veins. Left leg larger than right leg but improved. -pending protein c, S; factor 5 Leiden -On Eliquis Hypothyroidism: -Continue home dose Synthroid 200 mcg daily FLORA (obstructive sleep apnea): -CPAP at bedtime Hypertension -restarted chlorthalidone 25 mg daily Total Time Total Time Spent Total Time Spent (In Minutes): Less than 30 Discharge Plan Discharge Items Patient Disposition: Home - Self-Care Reason For Visit: SADDLE PE Discharge Diagnosis: Acute saddle pulmonary embolism Activity: Resume your previous activity Non-emergency contact: Primary Care Provider Call non-emergency contact if: you have any medication questions, your pain is unusual for you and your temperature is above 101.5 Follow-up/Referrals: Duc Smallwood DO [Primary Care Provider] - 06/13/22 11:30 am (PCP follow up appointment June 13, 2022 @ 11:30am.) Diet: Regular Addtl Attending Provider Instructions: You were admitted to the hospital for Acute saddle pulmonary embolism. You were treated with blood thinner and will be on blood thinner at home. A discharge summary will be sent to your primary care physician to ensure continuity of care. Please bring this discharge summary with you to your next office appointment so that your provider can review it at that time. Follow-up appointments: * Make a follow-up appointment with your PCP within the next week. It is very important that you follow up with them shortly after discharge from the hospital. * Keep all your follow-up appointments as already scheduled. If you cannot make an appointment, notify your provider. Medications: Your medication list has been reviewed and reconciled upon discharge to ensure accuracy and continuity of care. An updated list of all your medications is included with your hospital discharge paperwork. Please review this list closely, and make note of any changes. * We sent a new medication called Eliquis to your pharmacy. Take Eliquis (10mg) twice a day for 6 days. Then you will be on Eliquis 5mg twice a day. * If you have any issues filling these prescriptions, please call [phone] and ask to leave a message for Dr. Barron. * Take your medications as instructed; do not skip a dose of your medicines. Make sure all of your doctors know every medicine you are taking (including sctt-fqz-vxfnxut medicines, vitamins, and supplements). Call your primary care provider before taking any new medicines (including over- the-counter medicines, vitamins, and supplements), because some of these may interact with your current medications, or may make your symptoms worse. Tell your primary care provider if you cannot afford your medications. CONTACT YOUR PRIMARY CARE PROVIDER if you experience any of the following: * Worsening of symptoms * Fever, chills, or fatigue * Difficulty following your treatment plan, or difficulty taking medications CALL 911 OR GO TO THE EMERGENCY DEPARTMENT if you experience any of the following: * Sudden, severe abdominal pain or nausea/vomiting * Severe chest pain, or chest pain that radiates (moves) to your jaw or arm * Sudden, severe shortness of breath or difficulty breathing Thank you for allowing us to participate in your care. Pending Studies at Discharge: No Stand-Alone Forms: My [employer], Smoking Cessation Medications and DC Order Prescriptions: New Eliquis 5 mg (74 tabs) tablets,dose pack 5 mg PO BID Qty: 74 0RF Rx Instructions: 10mg BID for 6 days. Then 5mg BID. Continued levothyroxine 200 mcg tablet 200 mcg PO QAM Qty: 90 3RF chlorthalidone 25 mg tablet 25 mg PO DAILY Qty: 90 3RF Metamucil 3.4 gram/5.4 gram powder 1 tbsp PO QAM Rx Instructions: mix into at least 8 oz of water or juice before administering sildenafil 100 mg tablet 100 mg PO QPM PRN (Reason: Sexual Activity) Rx Instructions: Take one tablet by mouth one hour prior to sexual activity Discharge Orders: Discharge Order (Routine); Ordered 06/08/22 Ordered By: Abdulaziz Reina Admission Data Admit Date/Time: 06/07/22 03:11 Attending Provider: Abdulaziz Jesus Admit Provider: Isaias Wiseman Primary Care Provider: Duc Smallwood Other Providers: Sanchez Menon ; Rock Lowery ; Duc Smiley ; Raji Ward ; Hector Garcia ; Simon Barker ; Akash Morales ; Yolette Santos ; Haroon Gonsales ; Mi Epstein Other Interventions: Discharge Summary Assessment (RN) Last Done: 06/08/22 11:44 Supervising Physician Co-Signing Physician Notes I personally examined the patient and verified all field points of history and exam, discussed case, and agree with decision making with Dr Barron Feeling good overall. Walking without much dyspnea. Mildly lightheaded earlier but quickly resolved. Feels up to going home. After extensive cross checking, at least at this time Eliquis is his treatment of choice. Vitals noted, in general he is awake and alert pleasant no distress. HEENT normocephalic atraumatic mucous membranes moist. Breathing unlabored no accessory muscle use good effort. Skin shows no rashes no pallor or icterus. Neuro without focal deficits. PEquite stable. Home on Eliquis, indefinite course of treatment given minimal provoking factors. Coughsounds like resolving flu. Reassurance, supportive care. Resident Activity Tracking Resident Involvement: Resident Care Provided Care Provided: Adult Hospital Medicine
[2022-06-08] MEDS ORDERED: CHLORTHALIDONE 25 MG TAB PO SCH (09:00)
[2022-06-08] MEDS: APIXABAN 5 MG TABLET PO SCH (09:36)
--- NOTE | 2022-06-08 10:20 | Communication Note ---
Date of Service: June 08, 2022 By CMS guidelines, a determination that the admission or continued stay is not medically necessary has been made by a member of the UR committee and a peace baptiste for this hospital stay, therefore a Code 44 will be completed and the Inpatient admission will be changed to outpatient. Luis Weaver MD member, Utilization Review Committee
--- NOTE | 2022-06-09 05:44 | Electrocardiogram Report ---
Test Reason : Blood Pressure : / mmHG Vent. Rate : 079 BPM Atrial Rate : 079 BPM P-R Int : 216 ms QRS Dur : 098 ms QT Int : 394 ms P-R-T Axes : 102 -34 -04 degrees QTc Int : 451 ms Sinus rhythm with 1st degree A-V block Left axis deviation Moderate voltage criteria for LVH, may be normal variant Abnormal ECG When compared with ECG of 13-DEC-2021 14:04, PA interval has increased Confirmed by Laci Mcclelland ([id number]) on 06/09/2022 5:43:57 AM Referred By: Duc Smallwood Confirmed By:Laci Mcclelland
[2022-06-13 08:07] LABS: PTT LA Screen 108 sec (<=40); Protein S Functional(Activity) 85 % normal (70-150)
[2022-06-14 08:21] LABS: Lupus Hex Phase (Rflxdonotord) Negative (Negative)
[2022-06-14 08:42] LABS: Anti Cardiolipin Ab IgG <2.0 GPL-U/mL; Anti Cardiolipin Ab IgM <2.0 MPL-U/mL; B2 Glycoprotein IgG <2.0 U/mL (<20.0); B2 Glycoprotein IgM <2.0 U/mL (<20.0)
[2022-06-14 20:57] LABS: Factor 5 Mutation NEGATIVE
== END 2022-06-08 14:33 | disposition home or self-care (01) ==
LOC: ED 00:37 → INTOOBSV 03:11 → 1E 03:11 → SUATTDRO 03:11 → 1E 04:00